=== PATIENT | female | born 1970 | race Caucasian/White ===

== ENCOUNTER → 2020-05-17 15:35 | Outpatient (BNVA) | payer MEDICAID, SELFPAY | PROVIDERS: Visit Provider Physician Assistant ==

== ENCOUNTER → 2020-05-28 08:11 | Outpatient (BNVA) | payer OTHER, SELFPAY | PROVIDERS: Visit Provider Surgery ==

== ENCOUNTER 2020-06-10 12:44 | Day surgery (SDC) | payer OTHER, SELFPAY ==
--- NOTE | 2020-06-09 09:48 | HO.ANESPROP2 ---
Documented by User: Mireya Fleming 06/09/20 09:49 HPI - Anesthesia Eval Consult details Narrative: 49yo F for EGD s/p gastric bypass 2005 [facility] Active Problems Active Problems: All Active Problems (Updated 05/28/20 @ 15:08 by Beka Beverly MD) Anxiety (Acute) Depression (Acute) Intestinal malabsorption (Acute) DJD (degenerative joint disease) (Acute) Morbid obesity (Acute) Past Medical History Medical History (Updated 06/10/20 @ 14:30 by Chata Lai) Anxiety Depression DJD (degenerative joint disease) Intestinal malabsorption Morbid obesity Family History Family History Mother Diabetes Hypertension Father No problems noted. Sister Leukemia Sister No problems noted. Sister No problems noted. Brother No problems noted. Brother No problems noted. Daughter No problems noted. Surgical History Surgical History Hx of cholecystectomy Hx of gastric bypass Social History Social History Alcohol intake: never Smoking Status: Never smoker Use of substances other than those prescribed or required for medical reasons: No Advance Directives: No Advance Directives Information Provided: Yes Meds Allergies Allergy/AdvReac Type Severity Reaction Status Date / Time No Known Allergies Allergy Verified 05/28/20 09:44 Home Medications Medication Instructions Recorded Confirmed Last Taken Type meloxicam 15 mg tablet 15 mg PO DAILY 05/28/20 05/28/20 Unknown History Exam Exam Date and Time: June 09, 2020 0948 Assessment and Plan Assessment Anesthesia Assessment: Chart Reviewed Documented by User: Chata Lai 06/10/20 14:40 [facility] Past Medical History Medical History (Updated 06/10/20 @ 14:30 by Chata Lai) Anxiety Depression DJD (degenerative joint disease) Intestinal malabsorption Morbid obesity Family History Family History Mother Diabetes Hypertension Father No problems noted. Sister Leukemia Sister No problems noted. Sister No problems noted. Brother No problems noted. Brother No problems noted. Daughter No problems noted. Family history of problems with anesthesia: No Surgical History Surgical History Hx of cholecystectomy Hx of gastric bypass History of Problems with Anesthesia: No Social History Social History Alcohol intake: never Smoking Status: Never smoker Use of substances other than those prescribed or required for medical reasons: No Advance Directives: No Advance Directives Information Provided: Yes Meds Allergies Allergy/AdvReac Type Severity Reaction Status Date / Time No Known Allergies Allergy Verified 05/28/20 09:44 Home Medications Medication Instructions Recorded Confirmed Last Taken Type meloxicam 15 mg tablet 15 mg PO DAILY 05/28/20 05/28/20 Unknown History Exam Height,Weight and Vital Signs: Vital Signs Temp Pulse Resp BP Pulse Ox 06/10/20 13:03 97.8 F 70 18 129/75 98 Pertinent Lab Results Pertinent Lab Results: Lab Results 06/10/20 06/10/20 Range/Units 12:53 12:59 Urine Test NEGATIVE (NEGATIVE) COVID-19 (RODRIGO) Negative (Negative) COVID-19 Clin Com SEE COMMENT Airway Mallampati Class: II TM Dist: >3cm Neck ROM: Full Loose/Missing/Broken Teeth: Yes (Broken tooth- 1 each side- bottom right, bottom left) Heart: RRR Lungs: CTAB Assessment and Plan Assessment Anesthesia Assessment: Anesthesia Plan Discussed and Chart Reviewed Final Anesthetic Review NPO: No (7 hours- clear broth around 7-7:30am) ASA Class: III Final Preanesthetic Review: No Changes in Pt Med Stat, Meds/Allgs Chart Reviewed, Consent Obtained/Reviewed and Anes Risks/Benef Reviewed Patient Risk: Intermediate Procedure Risk: Low Assessment/Block/Sedation in SS: Assess/Block/Sedation-SS Anesthetic Plan Anesthetic Plan: MAC: Disposition: Standard PACU
[2020-06-09 11:08] VITALS: BMI 50.5
--- NOTE | 2020-06-10 07:51 | P.HPSUR_ITS ---
Pre-Procedural Eval Section A The patient is an INPATIENT: No The History & Physical has been completed within 30 days and I have reviewed it.: Yes Section B Chief Complaint: reflux disease Details of Present Illness: GERD Relevant Family History (Specify if Yes): No Relevant Social History: None Present Medications: see Short Stay Collaborative assessment Medical History: No relevant PMH History of Previous Operations: Relevant previous surgery/procedure and date(s) (Gastric bypass) Allergies: Allergies Allergy/AdvReac Type Severity Reaction Status Date / Time No Known Allergies Allergy Verified 05/28/20 09:44 Review of Systems Sugical H&P ROS: Negative: Constitution, Cardiovascular, Respiratory, Neurological, Psychiatric, Hem-Onc, Allergic/Immunologic, Gastrointestinal, Gen itourinary, Musculoskeletal, Integumentary, Endocrine and Eyes/Ears/Nose/Throat Exam Surgical H&P Exam: Normal: HEENT, Normal: Heart, Normal: Lungs, Normal: Extremities, Normal: Abdomen, Normal: Skin and Normal: Neurological Plan Diagnosis/Plan: Unchanged I have reviewed the history and physical and performed a pertinent physical examination on my patient. No changes have occurred unless specified.
[2020-06-10 13:03] VITALS: BP 129/75; PULSE 70; RESP 18; TEMP 36.6; O2SAT 98
[2020-06-10 13:04] LABS: UPreg QC Valid YES; Urine Pregnancy NEGATIVE (NEGATIVE)
[2020-06-10] MEDS: Lactated Ringers 1,000 ML 100 ML IVCONT (13:14)
[2020-06-10 13:25] LABS: COVID-19 Test Negative (Negative); IDNOW Serial# 9DD0AD1C
--- NOTE | 2020-06-10 14:28 | PM.OP ---
Brief Operative Note Date of Service: 06/10/20 Pre-op diagnosis: GERD, s/p gastric bypass Post-op diagnosis: same (1) hiatal hernia, 2) esophagitis, 3) redundant gastric pouch, 4) elongated blind end of Sandee limb) Procedure: PROCEDURE DATE: 06/10/2020 PREOPERATIVE DIAGNOSIS: GERD, s/p gastric bypass POSTOPERATIVE DIAGNOSIS: Same as above. 1) Redundant gastric pouch, 2) Candy cane gastro-jejunostomy, 3) hiatal hernia, 4) esophagitis PROCEDURE: Nimoybdn-[id number] with biopsies Surgeon: Darrian Beverly M.D.. Ph.D. Plywood And Veneer Repairer: None Anesthesia: IV sedation Estimated blood loss: Minimal FINDINGS AND PROCEDURE: OPERATIVE INDICATIONS: The patient is a 49 year old female known to me who underwent a laparoscopic gastric bypass elsewhere. The patient had inadequate weight loss so far and has GERD. Based on this information I recommended an upper endoscopy to evaluate the patient's symptoms. Risks and complications of the surgery were discussed with the patient in advance particularly the possibility of perforation or bleeding that may require surgical intervention. The patient understood the risks and was in agreement with the plan. PROCEDURE: After informed consent was obtained by the patient, the patient was transferred to the Operating Room and was placed in the supine position. After successful induction of IV sedation, a mouth block was placed and the patient was placed in the left lateral decubitus position. An upper endoscopy was performed next, the oropharynx and esophagus appeared within the normal limits. There was a 2cm hiatal hernia. The z-line was irregular with tongues of gastric mucosa protruding into the esophagus in 50% circumference. Two biopsies were obtained from the distal esophagus 2-3 cm proximal to the GE junction and two biopsies from the GE junction. The gastric pouch was entered, appeared to be 4cm long (GEJ: 35cm, GJ: 40cm). The pouch had significant redundancy laterally with the scope being able to retroflex. There was no gastritis and the gastrojejunostomy was patent. A biopsy was obtained from the gastric pouch. No significant bleeding was noted from any of the biopsy sites. There was no anastomotic ulcer. There was significant elongation of the blind end of the Sandee limb which was measured to be 8cm long (GJ: 40cm, end of blind end: 48cm) suggesting candy cane anatomy. At that point the scope was advanced into the proximal small intestine (proximal Sandee limb) which appeared to be normal as well. The Sandee limb and the pouch were decompressed and the scope was withdrawn from the patient's mouth. The patient was awaken and was transferred in stable condition to the Recovery Room for further care. I was present and performed all steps of the procedure. There were no residents to assist with this case. Darrian Beverly M.D., Ph.D. Surgeon: Beka Beverly MD Anesthesia: MAC Estimated blood loss (mL): 0 IV fluids (mL): 200 Urine output (mL): 0 (No Kohler to record) Pathology: other (1) GE junction x2, distal esophagus x2. gastric pouch x1) Condition: stable Disposition: PACU
[2020-06-10 15:02] VITALS: BP 93/64; PULSE 86; RESP 20; TEMP 36.6; O2SAT 99
[2020-06-10 15:19] VITALS: BP 99/72; PULSE 69; RESP 16; TEMP 36.6; O2SAT 99
== END 2020-06-10 15:45 ==
LOC: HO.SSS 12:44
PROVIDERS: Nurse Practitioner; Visit Provider Surgery
PROC: 0DJ08ZZ Inspection of Upper Intestinal Tract, Via Natural or Artificial Opening Endoscopic (ICD-10-PCS; CPT 43235; principal; 2020-06-10 13:40)
DX: K21.9 Gastro-esophageal reflux disease without esophagitis (principal); K20.80 Other esophagitis without bleeding; K90.2 Blind loop syndrome, not elsewhere classified; K91.1 Postgastric surgery syndromes; Z98.84 Bariatric surgery status; K44.9 Diaphragmatic hernia without obstruction or gangrene; E66.01 Morbid (severe) obesity due to excess calories; Z79.899 Other long term (current) drug therapy; Z68.43 Body mass index [BMI] 50.0-59.9, adult; Z90.49 Acquired absence of other specified parts of digestive tract
CPT/HCPCS: 43239; 36415; 81025; 87635; 88305; 88342

== ENCOUNTER → 2020-06-14 14:01 | Outpatient (BNVA) | payer OTHER, SELFPAY | PROVIDERS: Visit Provider Dietitian, Registered ==

== ENCOUNTER 2020-06-15 08:29 | Outpatient (REF) | payer OTHER, SELFPAY ==
--- NOTE | ~2020-06-15 | US_ITS ---
EXAMINATION: FL UPPER GI SERIES US ABDOMEN THE ELASTOGRAPHY CLINICAL INFORMATION: Morbid/severe obesity due to excess calories. COMPARISON: None. TECHNIQUE: Routine upper GI air contrast study was performed in upright and lying position. Ultrasound abdomen complete with Elastography performed. FINDINGS: UPPER GI: Following oral administration of thick barium and effervescent granules in upright view, there is normal progression of bolus from the oral cavity through the pharynx and esophagus and into the stomach without any evidence of obstruction, narrowing or stricture. On placing patient supine and prone lying, there is evidence of previous gastric bypass surgery with a small stomach. There is spontaneous emptying of barium into the small bowel loops. Also visualized is a large gastroesophageal reflux into the evz-yn-yvbzl esophagus. The mucosal pattern of stomach and the duodenum is normal. ULTRASOUND ABDOMEN: Pancreas: The pancreas is completely obscured by overlying gas.. Abdominal aorta and IVC: The course and caliber of the abdominal aorta is normal. IVC caliber is normal. Liver: The liver is homogeneous and diffusely echogenic, normal size and shape. No focal lesion seen. There is no intrahepatic or extrahepatic ductal dilatation. Right hepatic lobe measures 15.3 cm and the left hepatic lobe measures 7.8 cm. There is normal hepatopedal flow seen in the main portal vein. On elastography. The median value is 1.42 with an IQR/median of 0.21. The gallbladder has been surgically removed. CBD measures 0.4 cm. The right kidney measures 10.4 cm and left kidney measures 10.9 cm. There is normal cortical thickness. No echogenic stones, cyst or hydronephrosis seen in either kidneys. The spleen measures 8.2 cm and appears unremarkable. US/US abdomen comp w elastography IMPRESSION: Moderate gastroesophageal reflux without hiatal hernia. There is evidence of previous partial gastrectomy with spontaneous emptying of the stomach into the small bowel. Hepatic steatosis without focal lesion. Elastography median stiffness is 1.42 cm suggestive of cACLD ruled out.
--- NOTE | ~2020-06-15 | XR_ITS ---
EXAMINATION: XR CHEST CLINICAL INFORMATION: Obesity COMPARISON: None TECHNIQUE: 2 views of the chest were obtained. FINDINGS: Normal symmetric lung volumes. No parenchymal consolidation. No pleural effusion. No pneumothorax. Cardiomediastinal silhouette and pulmonary vascularity are within normal limits. No acute osseous abnormalities. XR/XR chest 2V IMPRESSION: Unremarkable examination.
[2020-06-15 09:17] LABS: MANUAL DIFF FLAG NO
[2020-06-15 09:24] LABS: Basophils Absolute Auto 0.1 X10*3/uL (0.0-0.2); Eosinophils Absolute Auto 0.1 X10*3/uL (0.0-0.4); Eosinophils Percent Auto 1.9 % (0-4); Hematocrit 42.9 % (37-47); Hemoglobin 13.9 g/dl (12.0-16.0); Imm Gran Abs Auto 0.02 X10*3/uL (0.00-0.03); Imm Gran Pct Auto 0.3 % (0.0-0.4); Lymphocytes Absolute Auto 1.9 X10*3/uL (1.2-4.9); Lymphocytes Percent Auto 29.5 % (20-40); Mean Corpuscular HGB Conc 32.4 g/dl (31.0-35.0); Mean Corpuscular Hemoglobin 30.1 pg (27.0-33.0); Mean Corpuscular Volume 92.9 fL (80-98); Mean Platelet Volume 11.5 fL (9.4-12.3); Monocytes Absolute Auto 0.6 X10*3/uL (0.1-1.2); Monocytes Percent Auto 9.6 % (2-11); Neutrophils Absolute Auto 3.6 X10*3/uL (2.0-8.3); Neutrophils Percent Auto 57.7 % (45-73); Platelet Count 296 X10*3/uL (160-400); Red Blood Count 4.62 X10*6/uL (4.20-5.50); Red Cell Distribution Width 13.1 % (11.0-16.0); White Blood Count 6.3 X10*3/uL (4.8-10.8)
[2020-06-15 09:29] LABS: Estimated Average Glucose 97 mg/dL
[2020-06-15 09:54] LABS: Alanine Aminotransferase 24 U/L (0-31); Albumin Level 4.3 g/dL (3.5-5.0); Alkaline Phosphatase 92 U/L (39-117); Anion Gap 14 (12-20); Aspartate Amino Transferase 26 U/L (5-31); Bilirubin Total 0.8 mg/dL (0.0-1.0); Blood Urea Nitrogen 19 mg/dL (9-16); C Reactive Protein 0.23 mg/dL (< or = 0.50); Calcium 9.2 mg/dL (8.4-10.2); Carbon Dioxide 25 mmol/L (22-29); Chloride 108 mmol/L (96-108); Cholesterol 123 mg/dL; Estimated Glomerular Filt Rate > 60; Glucose Random 82 mg/dL (60-115); HDL Cholesterol 35 mg/dL; LDL Cholesterol Calculated 78 mg/dl; Potassium 4.5 mmol/L (3.3-5.1); Sodium 142 mmol/L (135-145); Total Protein 7.2 g/dL (6.5-8.0); Triglycerides 52 mg/dL
[2020-06-15 10:16] LABS: Ferritin 24 ng/mL (10-250); TSH reflex Free T4 2.36 uIU/mL (0.32-4.0); Vitamin D 25-OH Total 10.2 ng/mL (>30)
--- NOTE | 2020-06-15 10:27 | ECG_ITS ---
Test Reason : OBESITY Blood Pressure : / mmHG Vent. Rate : 069 BPM Atrial Rate : 069 BPM P-R Int : 140 ms QRS Dur : 076 ms QT Int : 400 ms P-R-T Axes : 066 024 050 degrees QTc Int : 428 ms Normal sinus rhythm Normal ECG No previous ECGs available Referred By: Beka Beverly Electronically Signed By:CALLIE STOKES
[2020-06-15 10:49] LABS: Folate 12.3 ng/mL (> or = 4.0); Vitamin B12 218 pg/mL (200-900)
[2020-06-16 09:02] LABS: Insulin Level Total 5.8 uIU/mL
[2020-06-16 18:41] LABS: Calcium (PTHI) 9.6 mg/dL (8.6-10.2); PTHI 95 pg/mL (14-64)
[2020-06-18 02:57] LABS: Zinc 71 mcg/dL (60-130)
[2020-06-19 11:16] LABS: Vitamin B1 16 nmol/L (8-30)
[2020-06-19 22:47] LABS: Vitamin A 34 mcg/dL (38-98)
== END 2020-06-15 08:30 | disposition home or self-care (01) ==
LOC: HO.US 08:29
PROVIDERS: Visit Provider Surgery
DX: Z01.818 Encounter for other preprocedural examination (principal); E66.01 Morbid (severe) obesity due to excess calories; K21.9 Gastro-esophageal reflux disease without esophagitis; K90.9 Intestinal malabsorption, unspecified
CPT/HCPCS: 36415; 71046; 74240; 76705; 76981; 80053; 80061; 82306; 82607; 82728; 82746; 83036; 83525; 83970; 84425; 84443; 84590; 84630; 85025; 86140; 93005; 99211

== ENCOUNTER 2020-06-15 11:25 | Outpatient (REF) | payer OTHER, SELFPAY ==
[2020-06-17 12:36] LABS: H Pylori Breath Test NOT DETECTED (NOT DETECTED)
== END 2020-06-15 11:26 | disposition home or self-care (01) ==
LOC: HO.LNP 11:25
PROVIDERS: Visit Provider Surgery
DX: E66.01 Morbid (severe) obesity due to excess calories (principal); K90.9 Intestinal malabsorption, unspecified; K21.9 Gastro-esophageal reflux disease without esophagitis; Z11.0 Encounter for screening for intestinal infectious diseases
CPT/HCPCS: 83013

== ENCOUNTER 2020-06-23 08:14 | Outpatient (REF) | payer OTHER, SELFPAY ==
[2020-06-29 03:52] LABS: HPV 16 RNA NOT DETECTED (NOT DETECTED); HPV mRNA E6/E7 rflx Detected (Not Detected)
== END 2020-06-23 08:15 | disposition home or self-care (01) ==
LOC: HO.LAB 08:14
PROVIDERS: Visit Provider Surgery
DX: Z01.419 Encounter for gynecological examination (general) (routine) without abnormal findings (principal); E66.01 Morbid (severe) obesity due to excess calories; E50.9 Vitamin A deficiency, unspecified; E55.9 Vitamin D deficiency, unspecified; E53.8 Deficiency of other specified B group vitamins
CPT/HCPCS: 36415; 87624; 87625; 88141; 88142

== ENCOUNTER → 2020-07-14 08:13 | Outpatient (BNVA) | payer OTHER, SELFPAY | PROVIDERS: Visit Provider Dietitian, Registered | DX: E66.01 Morbid (severe) obesity due to excess calories (principal); Z68.42 Body mass index [BMI] 45.0-49.9, adult | CPT/HCPCS: 97803 ==

== ENCOUNTER → 2020-07-16 08:10 | Outpatient (BNVA) | payer OTHER, SELFPAY | PROVIDERS: Visit Provider Surgery ==

== ENCOUNTER 2020-07-21 10:28 | Outpatient (REF) | payer OTHER, SELFPAY | END 2020-07-21 10:29 | disposition home or self-care (01) | LOC: HO.LAB 10:28 | PROVIDERS: Visit Provider Obstetrics & Gynecology | DX: N87.0 Mild cervical dysplasia (principal) | CPT/HCPCS: 57454; 88305 ==

== ENCOUNTER → 2020-07-30 12:28 | Outpatient (BNVA) | payer OTHER, SELFPAY | PROVIDERS: Visit Provider Obstetrics & Gynecology ==

== ENCOUNTER → 2020-08-10 11:04 | Outpatient (BNVA) | payer OTHER, SELFPAY | PROVIDERS: Visit Provider Surgery ==

== ENCOUNTER 2020-08-25 15:00 | Outpatient (REF) | payer OTHER, SELFPAY ==
[2020-08-25 17:24] LABS: Blood Urea Nitrogen 18 mg/dL (9-16); Estimated Glomerular Filt Rate > 60
== END 2020-08-25 15:01 | disposition home or self-care (01) ==
LOC: HO.LAB 15:00
PROVIDERS: Physician Assistant; Visit Provider Surgery
DX: Z01.812 Encounter for preprocedural laboratory examination (principal)
CPT/HCPCS: 36415; 82565; 84520

== ENCOUNTER 2020-09-01 09:55 | Outpatient (REF) | payer OTHER, SELFPAY ==
--- NOTE | ~2020-09-01 | CT_ITS ---
EXAMINATION: CT ABDOMEN AND PELVIS WITH CONTRAST CLINICAL INFORMATION: Morbid to severe obesity. COMPARISON: None TECHNIQUE: Multidetector volumetric images were obtained from the superior aspect of the liver through the pubic symphysis following administration 85 mL of Omnipaque 350 intravenous contrast. Sagittal and coronal reformatted images were obtained on the technologist's workstation. Oral contrast: No. This CT examination was performed using dose optimization techniques as appropriate, variously including the following: *Automated exposure control *Adjustment of mA and/or kV according to patient size (this includes techniques or standardized protocols for targeted exams where dose is matched to indication/reason for exam; i.e. extremities or head) *Use of iterative reconstruction technique DLP: 908 mGy-cm FINDINGS: LUNG BASES: There is a 4 mm calcification in the left lower lobe image 07/01. No additional nodules seen. Heart size is normal. LIVER, GALLBLADDER, AND BILIARY TREE: The liver is normal in size, shape, and diffusely attenuated. No focal hepatic lesion or biliary ductal dilatation is present. The gallbladder has been surgically removed. PANCREAS: Unremarkable. SPLEEN: The spleen is unremarkable with a small accessory splenule. ADRENAL GLANDS: Unremarkable. KIDNEYS AND URETERS: The kidneys are normal in size, shape, and attenuation. No hydronephrosis, hydroureter, or calculi seen. No perinephric stranding. BLADDER: Unremarkable. GASTROINTESTINAL TRACT: The small and large bowel are unremarkable. The appendix is unremarkable. ABDOMINAL WALL: There is scattered stool, oral contrast and gas seen throughout the colon without distention. The small bowel loops are normal caliber. The appendix is not seen well. There is evidence of previous gastric sleeve surgical changes in the left epigastric region. LYMPH NODES: Normal. VASCULAR: Unremarkable. PELVIC VISCERA: The uterus is anteverted with an IUD well located within the endometrial canal. There is no adnexal mass or free fluid. OSSEOUS STRUCTURES: There is mild bilateral L4-L5 and L5-S1 facet joint arthropathy. No lytic or sclerotic process seen. CT/CT abdomen pelvis w con IMPRESSION: No acute intra-abdominal process seen. Mild constipation. Previous cholecystectomy and likely gastric sleeve or bypass surgical changes. Mild hepatic steatosis.
[2020-09-01] MEDS: Barium Sulfate Oral (Vanilla) 450 ML ORAL.SUSP 900 ML PO (12:50)
[2020-09-01] MEDS: iohexoL 350 MG/ML 100 ML INFUS..BTL IV (12:50)
== END 2020-09-01 09:56 | disposition home or self-care (01) ==
LOC: HO.CT 09:55
PROVIDERS: Visit Provider Surgery
DX: Z30.433 Encounter for removal and reinsertion of intrauterine contraceptive device (principal); E66.01 Morbid (severe) obesity due to excess calories; K90.9 Intestinal malabsorption, unspecified; K21.9 Gastro-esophageal reflux disease without esophagitis; R10.11 Right upper quadrant pain; Z98.84 Bariatric surgery status
CPT/HCPCS: 58300; 58301; 74177; 81025; Q9967

== ENCOUNTER 2020-09-01 10:22 | Outpatient (REF) | payer OTHER, SELFPAY ==
[2020-09-01 13:59] LABS: CT PCR NOT DETECTED (Not Detect.); NG PCR NOT DETECTED (Not Detect.)
== END 2020-09-01 10:23 | disposition home or self-care (01) ==
LOC: HO.LAB 10:22
PROVIDERS: Visit Provider Obstetrics & Gynecology
DX: Z11.3 Encounter for screening for infections with a predominantly sexual mode of transmission (principal)
CPT/HCPCS: 87491; 87591

== ENCOUNTER → 2020-09-03 08:14 | Outpatient (BNVA) | payer OTHER, SELFPAY | PROVIDERS: Visit Provider Surgery ==

== ENCOUNTER 2021-07-06 11:02 | Outpatient (REF) | payer OTHER, SELFPAY ==
[2021-07-06 15:24] LABS: Iron 115 mcg/dL (30-160)
[2021-07-06 15:34] LABS: Percent Iron Saturation 33 % (15-50); Total Iron Binding Capacity 349 mcg/dL (228-428); Unsaturated Iron Binding 234 ug/dL
[2021-07-06 15:42] LABS: Ferritin 14 ng/mL (10-250)
[2021-07-06 15:54] LABS: Folate 11.7 ng/mL (> or = 4.0); Vitamin B12 255 pg/mL (200-900)
[2021-07-06 15:57] LABS: Syphilis Screen Nonreactive (Nonreactive)
[2021-07-07 04:46] LABS: HIV AB/AG Nonreactive (Nonreactive); HIV Num 1 0.06 S/CO (0.00-0.99); ~HepC Num1 0.13 S/CO (0.00-0.79); ~Hepatitis C Antibody Nonreactive (Nonreactive)
[2021-07-07 04:48] LABS: Hepatitis B Core Antibody Nonreactive (Nonreactive)
[2021-07-07 14:15] LABS: CT PCR NOT DETECTED (Not Detect.); NG PCR NOT DETECTED (Not Detect.)
[2021-07-11 03:02] LABS: Zinc 65 mcg/dL (60-130)
[2021-07-11 14:26] LABS: HPV mRNA E6/E7 rflx Not Detected (Not Detected)
[2021-07-12 17:25] LABS: Vitamin A 42 mcg/dL (38-98)
[2021-07-13 17:17] LABS: Vitamin B1 15 nmol/L (8-30)
== END 2021-07-06 11:03 | disposition home or self-care (01) ==
LOC: HO.LAB 11:02
PROVIDERS: Absent Provider Advanced Practice Midwife; PCP Internal Medicine; Visit Provider Physician Assistant Surgical
DX: Z01.419 Encounter for gynecological examination (general) (routine) without abnormal findings (principal); N87.0 Mild cervical dysplasia; Z11.3 Encounter for screening for infections with a predominantly sexual mode of transmission; Z11.8 Encounter for screening for other infectious and parasitic diseases; Z11.4 Encounter for screening for human immunodeficiency virus [HIV]; Z11.51 Encounter for screening for human papillomavirus (HPV); Z11.59 Encounter for screening for other viral diseases; E66.01 Morbid (severe) obesity due to excess calories; K90.49 Malabsorption due to intolerance, not elsewhere classified; F41.8 Other specified anxiety disorders; Z68.42 Body mass index [BMI] 45.0-49.9, adult; Z97.5 Presence of (intrauterine) contraceptive device; Z90.49 Acquired absence of other specified parts of digestive tract; Z98.84 Bariatric surgery status; Z71.3 Dietary counseling and surveillance
CPT/HCPCS: 36415; 82306; 82607; 82728; 82746; 83540; 84425; 84590; 84630; 86704; 86780; 86803; 87389; 87491; 87591; 87624; 88142; 99212